=== PATIENT | female | born 2000 | race Caucasian/White ===

== ENCOUNTER 2023-08-08 09:25 | Emergency (ER) | payer OTHER, SELFPAY ==
--- NOTE | ~2023-08-08 | CT_ITS ---
EXAMINATION: CT ABDOMEN AND PELVIS WITHOUT CONTRAST CLINICAL INFORMATION: Diffuse abdominal pain. COMPARISON: CT abdomen/pelvis dated 12/24/2022. TECHNIQUE: Multidetector volumetric imaging was performed from the superior aspect of the liver through the pubic symphysis. Sagittal and coronal reformatted images were obtained on the technologist's workstation. This CT examination was performed using dose optimization techniques as appropriate, variously including the following: *Automated exposure control *Adjustment of mA and/or kV according to patient size (this includes techniques or standardized protocols for targeted exams where dose is matched to indication/reason for exam; i.e. extremities or head) *Use of iterative reconstruction technique DLP: 1053 mGy-cm FINDINGS: LUNG BASES: The visualized lung bases are unremarkable. LIVER, GALLBLADDER, AND BILIARY TREE: The liver is normal in size and shape. Parenchymal hypoattenuation, consistent with steatosis. No focal hepatic lesion or biliary ductal dilatation is present. The gallbladder is unremarkable with no evidence of radiopaque gallstones, gallbladder wall thickening, or obvious pericholecystic inflammatory changes. PANCREAS: Unremarkable. SPLEEN: Unremarkable. ADRENAL GLANDS: Unremarkable. KIDNEYS AND URETERS: The kidneys are normal in size, shape, and attenuation. No hydronephrosis, hydroureter, or calculi seen. No perinephric stranding. BLADDER: Unremarkable. GASTROINTESTINAL TRACT: No small or large bowel obstruction. No bowel wall thickening or inflammatory change. Unremarkable appendix. PERITONEAL CAVITY: No intra-abdominal free air or free fluid. No intra-abdominal mass or organized fluid collection/abscess formation. ABDOMINAL WALL: No significant hernia is appreciated. LYMPH NODES: No significant lymphadenopathy, however, evaluation is limited without IV contrast. VASCULAR: Unremarkable. PELVIC VISCERA: The uterus and adnexa are unremarkable. OSSEOUS STRUCTURES: Unremarkable. CT/CT abdomen pelvis wo IV con IMPRESSION: 1. No small or large bowel obstruction. No bowel wall thickening or inflammatory change. Unremarkable appendix. 2. No hydronephrosis or nephrolithiasis. 3. Hepatic steatosis. No hepatic parenchymal lesion or biliary ductal dilatation. 4. No intra-abdominal mass, lymphadenopathy, or ascites. Fleischner guidelines were followed.
--- NOTE | ~2023-08-08 | CT_ITS ---
EXAMINATION: CT HEAD WITHOUT CONTRAST CLINICAL INFORMATION: found on porch. COMPARISON: CT head 12/24/2022 TECHNIQUE: Contiguous axial imaging was performed from the skull base to vertex without intravenous administration of contrast. This CT examination was performed using dose optimization techniques as appropriate, variously including the following: *Automated exposure control *Adjustment of mA and/or kV according to patient size (this includes techniques or standardized protocols for targeted exams where dose is matched to indication/reason for exam; i.e. extremities or head) *Use of iterative reconstruction technique DLP: 1053 mGy-cm FINDINGS: There is no evidence of acute intracranial hemorrhage or edematous territorial infarction. No abnormal mass effect or midline shift is seen. Sanchez to white matter differentiation is well preserved. No extra-axial fluid collections are identified. The ventricles are normal in size. No abnormal attenuation in the brain parenchyma. No acute calvarial fracture.. Paranasal sinuses and mastoid air cells are well-aerated. CT/CT head/brain wo IV con IMPRESSION: No CT evidence of acute intracranial hemorrhage or edematous territorial infarction.
[2023-08-08 09:37] VITALS: BP 118/66; BP 94/49; PULSE 86; RESP 16; TEMP 36; O2SAT 96; O2SAT 97; BMI 31.3
--- NOTE | 2023-08-08 09:55 | PC.NURSE ---
juice given per Jackie CRUZ for blood sugar of 55
[2023-08-08 10:13] LABS: MANUAL DIFF FLAG NO
[2023-08-08 10:16] LABS: Basophils Percent Auto 0.2 % (0-2); Eosinophils Percent Auto 0.1 % (0-4); Hematocrit 42.1 % (37.0-47.0); Hemoglobin 14.3 g/dl (12.0-16.0); Imm Gran Abs Auto 0.06 X10*3/uL (0.00-0.03); Imm Gran Pct Auto 0.5 % (0.0-0.4); Lymphocytes Absolute Auto 2.3 X10*3/uL (1.2-4.9); Lymphocytes Percent Auto 17.6 % (20-40); Mean Corpuscular Hemoglobin 30.2 pg (27.0-33.0); Mean Corpuscular Volume 88.8 fL (80.0-98.0); Mean Platelet Volume 9.2 fL (9.4-12.3); Monocytes Absolute Auto 0.4 X10*3/uL (0.1-1.2); Monocytes Percent Auto 2.9 % (2-11); Neutrophils Absolute Auto 10.4 x10*3/uL (2.0-8.3); Neutrophils Percent Auto 78.7 % (45-73); Platelet Count 311 X10*3/uL (160-400); Red Blood Count 4.74 X10*6/uL (4.20-5.50); Red Cell Distribution Width 12.8 % (11.0-16.0); White Blood Count 13.2 X10*3/uL (4.8-10.8)
--- NOTE | 2023-08-08 10:26 | ED.AMS ---
HPI - Altered Mental Status General Chief Complaint: Altered Mental Status Stated Complaint: FOUND OUTSIDE,?ETOH/[place] PER EMS Time Seen by Provider: 08/08/23 09:45 Source: patient, EMS, RN notes reviewed and old records reviewed Mode of arrival: EMS History of Present Illness HPI narrative: 23-year-old female with no known past medical hx BIBA s/p being found sleeping on a stranger's porch in [place] across from [facility]. POC 55. Patient states she was at [facility] last night and was told to go wait for a bus however does not remember anything else. Admits to drug and EtOH use. Denies known injury/trauma or fall. History limited due to patient's cooperation/acute mental status Related Data Allergies Allergy/AdvReac Type Severity Reaction Status Date / Time No Known Allergies Allergy Verified 08/08/23 09:50 Review of Systems Review of Systems: ROS limited due to patient's acute mental status/cooperation Yes all other systems are reviewed and are negative Constitutional: Constitutional: Reports as per HPI [facility] Past Medical History Attestation statement: The following information was validated with the patient. Source: old records reviewed Social History Social History Advance Directives: No Advance Directives Information Provided: No Physical Exam ED Vital Signs: Vital Signs - 24 hr 08/08/23 09:37 08/08/23 11:42 08/08/23 14:41 Temperature 96.8 F Pulse Rate 57 98 Respiratory Rate 16 16 16 Blood Pressure 94/49 L 97/59 L 112/68 Pulse Oximetry 96 99 98 Oxygen Delivery Method Room Air Room Air Room Air BMI result Body Mass Index 31.3 Const General: no acute distress Orientation/consciousness: oriented to person and oriented to place HENDE Head: Yes normal to inspection and Yes atraumatic Ears: hearing grossly normal bilaterally General nose exam: Normal external nose present Face and sinus: Yes normal facial exam Eyes General: appearance normal, both eyes and all related structures Pupils: Equal, round and reactive pupils present EOM: EOMs intact bilaterally Neck Neck: Yes normal visual inspection and Yes no meningeal signs Resp Effort & Inspection: normal respiratory effort and no respiratory distress Auscultation: clear to auscultation bilaterally Cardio Rate: regular rate Heart sounds: S1 normal heart sound present and S2 normal heart sound present GI Inspection: Yes normal to inspection Palpation (GI): Soft to palpation, Tenderness to palpation present (GI) (Diffusely) with no rebound tenderness, no guarding and not rigid Skin Other: + healing ecchymosis noted to left upper thigh Rashes: no rashes Neuro General: oriented to person, oriented to place, tone normal, moves all extremities, no meningeal signs and no focal motor deficits Cranial nerves: Yes CN's II-XII intact bilaterally and Yes Equal, round and reactive pupils present Extrem General: Yes normal to inspection Course Course Course Narrative: -mild leukocytosis of 13.2. Glucose 55 > patient tolerating p.o. apple juice, improved to 92 -labs otherwise reassuring. Ethanol 128. COVID influenza negative -UA not infected, 80 ketones, negative CT head/brain wo IV con IMPRESSION: No CT evidence of acute intracranial hemorrhage or edematous territorial infarction. CT abdomen pelvis wo IV con IMPRESSION: 1. No small or large bowel obstruction. No bowel wall thickening or inflammatory change. Unremarkable appendix. 2. No hydronephrosis or nephrolithiasis. 3. Hepatic steatosis. No hepatic parenchymal lesion or biliary ductal dilatation. 4. No intra-abdominal mass, lymphadenopathy, or ascites. Fleischner guidelines were followed. > 1339--patient more awake and alert, tolerating p.o. -tox screen positive for cocaine and THC 1518--patient has been refusing juice/sandwiches, will only eat Jell-O. Easily arousable/awake and alert. Tolerating p.o., will continue to monitor -there is no recovery assistant on at this time. Repeat POC 116. Patient ambulating in the ED with steady gait, safe for discharge home at this time Results discussed with patient including worrisome signs and symptoms and strict return precautions, and when to return to the emergency department. They verbalized understanding and feel safe for discharge at this time. Medications Administered Discontinued Medications Generic Name Dose Route Start Last Admin Trade Name Freq PRN Reason Stop Dose Admin Lidocaine HCl 5 ml 08/08/23 15:11 08/08/23 15:44 Lidocaine Hcl Viscous 2 % 15 Ml Solution MUCOUS MEM 08/08/23 15:12 5 ml ONCE ONE Administration Medical Decision Making Medical Decision Making MDM Narrative: 23-year-old female with no known past medical hx BIBA s/p being found sleeping on a stranger's porch in [place] across from [facility]. On exam BP soft, A&Ox2, not answering all questions, appears under the influence. No evidence of trauma. SALDIVAR. Abdomen soft diffusely tender. Concern for substance abuse vs infectious/metabolic etiology. Rule out ICH and intra-abdominal pathology/injury. Patient hypoglycemic giving p.o. juice. Plan: Labs, UA, head/C-spine CT, tox screen, observe and re-evaluate Please refer to course for remaining clinical decision making, interpretation of labs/imaging results, and discussions with consultants and/or family members. Differential Diagnosis Differential Diagnoses: The differential diagnosis associated with the presentation includes As above Admission/Observation Consideration of admission/observation: Escalation of care including admission/observation considered Consult Healthcare Provider Management of the patient was discussed with: Behavioral [facility] Provider Lab Data MDM Lab Attestation statement: I reviewed the patient's lab results. 08/08/23 10:09 08/08/23 10:09 Labs: Lab Results 08/08/23 08/08/23 08/08/23 Range/Units 09:42 10:09 10:38 WBC 13.2 H (4.8-10.8) X10*3/uL RBC 4.74 (4.20-5.50) X10*6/uL Hgb 14.3 (12.0-16.0) g/dl Hct 42.1 (37.0-47.0) % MCV 88.8 (80.0-98.0) fL MCH 30.2 (27.0-33.0) pg MCHC 34.0 (31.0-35.0) g/dl RDW 12.8 (11.0-16.0) % Plt Count 311 (160-400) X10*3/uL MPV 9.2 L (9.4-12.3) fL Immature Gran % (Auto) 0.5 H (0.0-0.4) % Neut % (Auto) 78.7 H (45-73) % Lymph % (Auto) 17.6 L (20-40) % Hand % (Auto) 2.9 (2-11) % Eos % (Auto) 0.1 (0-4) % Baso % (Auto) 0.2 (0-2) % Lymph # (Auto) 2.3 (1.2-4.9) X10*3/uL Hand # (Auto) 0.4 (0.1-1.2) X10*3/uL Eos # (Auto) 0.0 (0.0-0.4) X10*3/uL Baso # (Auto) 0.0 (0.0-0.2) X10*3/uL Abs Immat Gran (auto) 0.06 H (0.00-0.03) X10*3/uL Absolute Neuts (auto) 10.4 H (2.0-8.3) x10*3/uL Absolute Nucleated RBC 0.000 (0.0-0.012) X10*3/uL Nucleated RBC % (auto) 0.0 (0.0-0.2) /100WBC Sodium 146 H (135-145) mmol/L Potassium 3.3 (3.3-5.1) mmol/L Chloride 107 (96-108) mmol/L Carbon Dioxide 23 (22-29) mmol/L Anion Gap 19 (12-20) BUN 10 (9-16) mg/dL Creatinine 0.82 (0.5-1.4) mg/dL Estim Creat Clear Calc 87.1 Estimated GFR > 60 POC Glucose 55 L* 63 92 (60-115) mg/dL Random Glucose 55 L* (60-115) mg/dL Calcium 9.0 (8.4-10.2) mg/dL Magnesium 2.1 (1.6-2.6) mg/dL Total Bilirubin 0.3 (0.0-1.0) mg/dL Direct Bilirubin 0.1 (0.0-0.5) mg/dL AST 37 H (5-31) U/L ALT 20 (0-31) U/L Alkaline Phosphatase 119 H (39-117) U/L Ammonia 36 (13-55) umol/L Total Protein 8.6 H (6.5-8.0) g/dL Albumin 4.7 (3.5-5.0) g/dL Lipase 12 (8-78) U/L Beta HCG, Quant < 2 mIU/mL Urine Color Urine Appearance Urine pH (5.0-9.0) Ur Specific Hudson (1.005-1.025) Urine Protein (Neg-Trace) mg/dL Urine Glucose (UA) (Negative) mg/dL Urine Ketones (Negative) mg/dL Urine Blood (Negative) Urine Nitrite (Negative) Ur Leukocyte Esterase (Negative) Urine Test (NEGATIVE) Urine Opiates Screen (Not Detect) Urine Fentanyl Screen (Not Detect) Ur Barbiturates Screen (Not Detect) Ur Phencyclidine Scrn (Not Detect) Ur Amphetamines Screen (Not Detect) U Benzodiazepines Scrn (Not Detect) Urine Cocaine Screen (Not Detect) U Marijuana (THC) Screen (Not Detect) Ethyl Alcohol 128 mg/dL COVID-19 (DARREL) Negative (Negative) COVID-19 Clin Com See Note Influenza Type A (TURNER) Negative (Negative) Influenza Type B (TURNER) Negative (Negative) Influenza A & B Note See Note 08/08/23 08/08/23 08/08/23 Range/Units 13:28 14:02 14:43 WBC (4.8-10.8) X10*3/uL RBC (4.20-5.50) X10*6/uL Hgb (12.0-16.0) g/dl Hct (37.0-47.0) % MCV (80.0-98.0) fL MCH (27.0-33.0) pg MCHC (31.0-35.0) g/dl RDW (11.0-16.0) % Plt Count (160-400) X10*3/uL MPV (9.4-12.3) fL Immature Gran % (Auto) (0.0-0.4) % Neut % (Auto) (45-73) % Lymph % (Auto) (20-40) % Hand % (Auto) (2-11) % Eos % (Auto) (0-4) % Baso % (Auto) (0-2) % Lymph # (Auto) (1.2-4.9) X10*3/uL Hand # (Auto) (0.1-1.2) X10*3/uL Eos # (Auto) (0.0-0.4) X10*3/uL Baso # (Auto) (0.0-0.2) X10*3/uL Abs Immat Gran (auto) (0.00-0.03) X10*3/uL Absolute Neuts (auto) (2.0-8.3) x10*3/uL Absolute Nucleated RBC (0.0-0.012) X10*3/uL Nucleated RBC % (auto) (0.0-0.2) /100WBC Sodium (135-145) mmol/L Potassium (3.3-5.1) mmol/L Chloride (96-108) mmol/L Carbon Dioxide (22-29) mmol/L Anion Gap (12-20) BUN (9-16) mg/dL Creatinine (0.5-1.4) mg/dL Estim Creat Clear Calc Estimated GFR POC Glucose 54 L* 80 (60-115) mg/dL Random Glucose (60-115) mg/dL Calcium (8.4-10.2) mg/dL Magnesium (1.6-2.6) mg/dL Total Bilirubin (0.0-1.0) mg/dL Direct Bilirubin (0.0-0.5) mg/dL AST (5-31) U/L ALT (0-31) U/L Alkaline Phosphatase (39-117) U/L Ammonia (13-55) umol/L Total Protein (6.5-8.0) g/dL Albumin (3.5-5.0) g/dL Lipase (8-78) U/L Beta HCG, Quant mIU/mL Urine Color Yellow Urine Appearance Clear Urine pH 5.0 (5.0-9.0) Ur Specific Hudson 1.025 (1.005-1.025) Urine Protein Trace (Neg-Trace) mg/dL Urine Glucose (UA) Negative (Negative) mg/dL Urine Ketones 80 (Negative) mg/dL Urine Blood Negative (Negative) Urine Nitrite Negative (Negative) Ur Leukocyte Esterase Negative (Negative) Urine Test NEGATIVE (NEGATIVE) Urine Opiates Screen Not Detected (Not Detect) Urine Fentanyl Screen Not Detected (Not Detect) Ur Barbiturates Screen Not Detected (Not Detect) Ur Phencyclidine Scrn Not Detected (Not Detect) Ur Amphetamines Screen Not Detected (Not Detect) U Benzodiazepines Scrn Not Detected (Not Detect) Urine Cocaine Screen POSITIVE H (Not Detect) U Marijuana (THC) Screen POSITIVE H (Not Detect) Ethyl Alcohol mg/dL COVID-19 (DARREL) (Negative) COVID-19 Clin Com Influenza Type A (TURNER) (Negative) Influenza Type B (TURNER) (Negative) Influenza A & B Note 08/08/23 Range/Units 15:46 WBC (4.8-10.8) X10*3/uL RBC (4.20-5.50) X10*6/uL Hgb (12.0-16.0) g/dl Hct (37.0-47.0) % MCV (80.0-98.0) fL MCH (27.0-33.0) pg MCHC (31.0-35.0) g/dl RDW (11.0-16.0) % Plt Count (160-400) X10*3/uL MPV (9.4-12.3) fL Immature Gran % (Auto) (0.0-0.4) % Neut % (Auto) (45-73) % Lymph % (Auto) (20-40) % Hand % (Auto) (2-11) % Eos % (Auto) (0-4) % Baso % (Auto) (0-2) % Lymph # (Auto) (1.2-4.9) X10*3/uL Hand # (Auto) (0.1-1.2) X10*3/uL Eos # (Auto) (0.0-0.4) X10*3/uL Baso # (Auto) (0.0-0.2) X10*3/uL Abs Immat Gran (auto) (0.00-0.03) X10*3/uL Absolute Neuts (auto) (2.0-8.3) x10*3/uL Absolute Nucleated RBC (0.0-0.012) X10*3/uL Nucleated RBC % (auto) (0.0-0.2) /100WBC Sodium (135-145) mmol/L Potassium (3.3-5.1) mmol/L Chloride (96-108) mmol/L Carbon Dioxide (22-29) mmol/L Anion Gap (12-20) BUN (9-16) mg/dL Creatinine (0.5-1.4) mg/dL Estim Creat Clear Calc Estimated GFR POC Glucose 116 H (60-115) mg/dL Random Glucose (60-115) mg/dL Calcium (8.4-10.2) mg/dL Magnesium (1.6-2.6) mg/dL Total Bilirubin (0.0-1.0) mg/dL Direct Bilirubin (0.0-0.5) mg/dL AST (5-31) U/L ALT (0-31) U/L Alkaline Phosphatase (39-117) U/L Ammonia (13-55) umol/L Total Protein (6.5-8.0) g/dL Albumin (3.5-5.0) g/dL Lipase (8-78) U/L Beta HCG, Quant mIU/mL Urine Color Urine Appearance Urine pH (5.0-9.0) Ur Specific Hudson (1.005-1.025) Urine Protein (Neg-Trace) mg/dL Urine Glucose (UA) (Negative) mg/dL Urine Ketones (Negative) mg/dL Urine Blood (Negative) Urine Nitrite (Negative) Ur Leukocyte Esterase (Negative) Urine Test (NEGATIVE) Urine Opiates Screen (Not Detect) Urine Fentanyl Screen (Not Detect) Ur Barbiturates Screen (Not Detect) Ur Phencyclidine Scrn (Not Detect) Ur Amphetamines Screen (Not Detect) U Benzodiazepines Scrn (Not Detect) Urine Cocaine Screen (Not Detect) U Marijuana (THC) Screen (Not Detect) Ethyl Alcohol mg/dL COVID-19 (DARREL) (Negative) COVID-19 Clin Com Influenza Type A (TURNER) (Negative) Influenza Type B (TURNER) (Negative) Influenza A & B Note Radiology Impression Discussion of test interpretation with radiology: I have reviewed the radiologist's reading. Independent Historian Clinical information obtained from an independent historian. History obtained from or confirmed by: EMS External Record Review External record reviewed: Inpatient record, Office record, Outpatient record, Prior outpatient labs, Prior outpatient radiology, Primary care record and Outside ED record Tests considered The following testing was considered but not selected: As above Social Determinants Patient?s care significantly limited by Social Determinants of Health including: Low income, Alcoholism and drug addiction in family, Problems related to primary support group and Unemployment Discharge Plan Discharge Clinical Impression: Polysubstance abuse, Hypoglycemia Patient Disposition: Home, Self-Care Instructions: Non-diabetic Hypoglycemia (ED), Polysubstance Abuse (ED) Additional Instructions: Your blood sugar was low today, make sure you are eating a well-balanced diet in drinking enough fluid Please avoid alcohol and drug use, but herself in a dangerous position today, you could have Follow-up with her doctor If symptom persist or worsen return to the ED Referrals: [facility] [Provider Group] [facility] [Outside] Physician,None [Primary Care Provider] -
[2023-08-08 10:32] LABS: Ammonia 36 umol/L (13-55)
[2023-08-08 10:41] LABS: COVID-19 Test Negative (Negative); IDNOW Serial# 9DB6401D; IDNOW Serial# BCCEAD1C; Influenza A Negative (Negative); Influenza B2 Negative (Negative)
[2023-08-08 10:42] LABS: Glucose, Whole Blood 63 mg/dL (60-115)
[2023-08-08 10:42] LABS: Glucose, Whole Blood 55 mg/dL (60-115)
[2023-08-08 10:42] LABS: Glucose, Whole Blood 92 mg/dL (60-115)
[2023-08-08 10:55] LABS: Alanine Aminotransferase 20 U/L (0-31); Albumin Level 4.7 g/dL (3.5-5.0); Alkaline Phosphatase 119 U/L (39-117); Anion Gap 19 (12-20); Aspartate Amino Transferase 37 U/L (5-31); Bilirubin Direct 0.1 mg/dL (0.0-0.5); Bilirubin Total 0.3 mg/dL (0.0-1.0); Blood Urea Nitrogen 10 mg/dL (9-16); Carbon Dioxide 23 mmol/L (22-29); Chloride 107 mmol/L (96-108); Creatinine Clr Calc Pharmacy 87.1; Estimated Glomerular Filt Rate > 60; Ethanol 128 mg/dL; Glucose Random 55 mg/dL (60-115); HCG Quantitative < 2 mIU/mL; Lipase 12 U/L (8-78); Magnesium 2.1 mg/dL (1.6-2.6); Potassium 3.3 mmol/L (3.3-5.1); Sodium 146 mmol/L (135-145); Total Protein 8.6 g/dL (6.5-8.0)
[2023-08-08 11:42] VITALS: BP 97/59; PULSE 57; RESP 16; O2SAT 99
--- NOTE | 2023-08-08 11:43 | PC.NURSE ---
patient sleeping. skin pwd, resp even and non labored. vss.
[2023-08-08 13:36] LABS: Appearance Urine Clear; Color Urine Yellow; Glucose Urine UA Negative (Negative); Leukocyte Esterase Urine Negative (Negative); Nitrite Urine Negative (Negative); Specific Gravity - Urine 1.025 (1.005-1.025); UPreg QC Valid YES; Urine Blood Negative (Negative); Urine Ketones 80 mg/dL (Negative); Urine Protein Trace mg/dL (Neg-Trace)
[2023-08-08 13:37] LABS: Urine Pregnancy NEGATIVE (NEGATIVE)
[2023-08-08 13:45] LABS: Amphetamine Screen Urine Not Detected (Not Detect); Barbiturates, Urine Not Detected (Not Detect); Benzodiazepines Screen Urine Not Detected (Not Detect); Cannabinoid Screen Urine POSITIVE (Not Detect); Cocaine Screen Urine POSITIVE (Not Detect); Fentanyl, urine Not Detected (Not Detect); Opiate Screen Urine Not Detected (Not Detect); Phencyclidine Screen Urine Not Detected (Not Detect)
[2023-08-08 14:06] LABS: Glucose, Whole Blood 54 mg/dL (60-115)
--- NOTE | 2023-08-08 14:15 | PC.NURSE ---
patient awake and alert. skin pwd, resp even and non labored, speaking in full, clear sentences. patients blood sugar decreased down to 54, patient given juice and snacks. PA aware
[2023-08-08 14:41] VITALS: BP 112/68; PULSE 98; RESP 16; O2SAT 98
[2023-08-08 14:50] LABS: Glucose, Whole Blood 80 mg/dL (60-115)
--- NOTE | 2023-08-08 15:30 | MHC.EDTECH ---
Patient ambulated with a steady gate and no assist
[2023-08-08] MEDS: Lidocaine HCl Viscous 2 % 15 ML SOLUTION 5 ML MUCOUS MEM (15:44)
[2023-08-08 15:50] LABS: Glucose, Whole Blood 116 mg/dL (60-115)
== END 2023-08-08 17:05 | disposition home or self-care (01) ==
PROVIDERS: Physician Assistant; Emergency Provider Emergency Medicine
DX: E16.2 Hypoglycemia, unspecified (principal); F19.10 Other psychoactive substance abuse, uncomplicated; R10.9 Unspecified abdominal pain; Z11.52 Encounter for screening for COVID-19
CPT/HCPCS: 70450; 74176; 80048; 80076; 80307; 81003; 81025; 82140; 82947; 83690; 83735; 84702; 85025; 87502; 87635; 99284

== ENCOUNTER 2025-03-25 02:21 | Emergency (ER) | payer SELFPAY ==
--- NOTE | ~2025-03-25 | CT_ITS ---
CLINICAL HISTORY: head trauma, EtOH CT BRAIN WITHOUT CONTRAST COMPARISON: 08/08/2023. FINDINGS: Exam is markedly limited due to motion/streak artifact. The patient was scanned twice. There is no definite evidence of an acute infarct or intraparenchymal hemorrhage. There is no definite mass effect, midline shift, or gross extra-axial blood. The ventricles are normal in size without evidence of hydrocephalus. The bone windows are unremarkable. IMPRESSION: 1. Markedly limited exam. No gross acute abnormality. This document has been electronically signed by: Miquel Robbins M.D. on 03/25/2025 04:11:46
--- NOTE | ~2025-03-25 | CT_ITS ---
CLINICAL HISTORY: fall, EtOH CT CERVICAL SPINE WITHOUT CONTRAST COMPARISON: None provided. FINDINGS: Examination is significantly motion limited. No definite acute fracture or dislocation in the cervical spine. Straightening of the normal cervical lordosis is noted. No prevertebral soft tissue swelling. No pneumothorax in the lung apices. IMPRESSION: 1. Significantly motion limited exam. No definite acute fracture or dislocation. This document has been electronically signed by: Miquel Robbins M.D. on 03/25/2025 04:02:56
[2025-03-25 02:25] VITALS: BP 110/58; PULSE 88; RESP 16; TEMP 36.1; O2SAT 97; BMI 24.9
--- NOTE | 2025-03-25 02:56 | PC.NURSE ---
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 The pt has intermittent periods of wakefullness, can be heard intermittently yelling out responding to stimuli intended for her neighbor in the bed over. she offers no complaints at this time, is noted to be moving all extremities, Pupils PERRLA, althgouh she is not necessarily making sense when she speaks her speech is clear. The pt had an episode and period of tearfullness without any known/identifiable cause, RN was present to help regulate her mood and provide verbal reassurance and support. Pt calm at this time, pending CT result and metabolise to freedom
--- NOTE | 2025-03-25 06:00 | ED.FALL ---
HPI - Fall General Chief Complaint: Fall Stated Complaint: ETOH Time Seen by Provider: 03/25/25 02:28 Source: patient, EMS, RN notes reviewed and old records reviewed Mode of arrival: EMS Limitations: altered mental status (Intoxication) History of Present Illness ED Provider: Dr. Paula Dawson HPI Narrative: 25-year-old female with unknown past medical history presenting with alcohol intoxication and witnessed fall by bystanders. Patient freely admits to drinking multiple shots today. Was reportedly coming in from a bar in [place] severely intoxicated when she fell outside of the car and hit her head on the curb. No reported LOC. No bleeding. Denies illicit substance use aside from alcohol. Had been feeling well prior to going out tonight according to EMS. Patient is belligerent and intoxicated, unable to answer any questions Related Data Previous Rx's ?Medication ?Instructions ?Recorded ondansetron 4 mg disintegrating 4 mg PO Q8H PRN nausea and 03/25/25 tablet vomiting #10 tabs Allergies Allergy/AdvReac Type Severity Reaction Status Date / Time No Known Allergies Allergy Verified 03/25/25 02:27 Review of Systems Review of Systems: As per HPI, full review of systems performed and negative but for the above mentioned pertinent positives and negatives. [facility] Social History Social History Alcohol intake: current Alcohol intake frequency: 0-2 drinks per day Alcohol type: hard liquor Substance Use Type: Marijuana Advance Directives: No Advance Directives Information Provided: No Physical Exam Exam: Exam: GENERAL: Appears intoxicated, GCS 13, eyes open to voice, slurred speech, no acute distress. SKIN: Normal skin color for ethnicity, warm, dry, no rashes noted. HEENT: Normocephalic, atraumatic, no stridor, posterior oropharynx nonerythematous, dentition intact, EOMI, pupils are pinpoint bilaterally, reactive to light. NECK: Soft, supple, no step-offs, no deformities, no lymphadenopathy. CHEST: Heart regular tachycardia, no murmurs, symmetric chest rise and fall. PULMONARY: Clear to auscultation bilaterally, diminished at the bases, no labored breathing, no wheezes/rhales/rhonchi. ABDOMINAL: Soft, nondistended, positive bowel sounds in all quadrants. : Deferred. MUSCULOSKELETAL: Normal tone, full range of motion, no deformities, no peripheral edema. NEURO: GCS 13, eyes open to voice, slightly slurred speech, CN II through XII intact, equal strength and sensation bilateral upper and lower extremities, no focal neurologic deficits. PSYCHIATRIC: Flat affect, poor eye contact. Vital Signs: Vital Signs: Last Vital Signs Temp 98.2 F 03/25/25 07:20 Pulse 91 03/25/25 07:20 Resp 14 03/25/25 07:20 BP 121/69 03/25/25 07:20 Pulse Ox 99 03/25/25 07:20 O2 Del Method Room Air 03/25/25 07:20 BMI result Body Mass Index 24.9 Course Course Course Narrative: has sober ride home, steady gait stable for DC Yamilex John, DO 03/25/25 0806 Medical Decision Making Medical Decision Making [facility] Narrative: Patient presents today with chief complaint of head trauma in the setting of alcohol intoxication. Different diagnosis on this patient includes intracranial hemorrhage, skull fracture, neck injury including fracture or spinal cord pathology. Other diagnoses considered would include chest or abdominal trauma as well as long bone fractures. Based on my physical exam, the ordered imaging modalities are indicated. The patient specifically does not show any signs of central cord syndrome as evidenced by equal strength in the upper extremities with normal two-point discrimination. Sensation is not altered. GCS is appropriate. Patient is neurovascularly intact. There are no signs of vascular emergency. No signs of shock. No respiratory distress. Patient is significantly intoxicated. CT does not show evidence of acute intracranial or C-spine pathology. Plan for sober re-evaluation and final disposition. Signing out to oncoming provider. Differential Diagnosis Differential Diagnoses: The differential diagnosis associated with the presentation includes (As above) Admission/Observation Consideration of admission/observation: Escalation of care including admission/observation considered Radiology Impression Discussion of test interpretation with radiology: I have reviewed the radiologist's reading. Radiologist Impression: CT CERVICAL SPINE WITHOUT CONTRAST COMPARISON: None provided. FINDINGS: Examination is significantly motion limited. No definite acute fracture or dislocation in the cervical spine. Straightening of the normal cervical lordosis is noted. No prevertebral soft tissue swelling. No pneumothorax in the lung apices. IMPRESSION: 1. Significantly motion limited exam. No definite acute fracture or dislocation. This document has been electronically signed by: Miquel Robbins M.D. on 03/25/2025 04:02:56 CT BRAIN WITHOUT CONTRAST COMPARISON: 08/08/2023. FINDINGS: Exam is markedly limited due to motion/streak artifact. The patient was scanned twice. There is no definite evidence of an acute infarct or intraparenchymal hemorrhage. There is no definite mass effect, midline shift, or gross extra-axial blood. The ventricles are normal in size without evidence of hydrocephalus. The bone windows are unremarkable. IMPRESSION: 1. Markedly limited exam. No gross acute abnormality. This document has been electronically signed by: Miquel Robbins M.D. on 03/25/2025 04:11:46 Independent Historian Clinical information obtained from an independent historian. History obtained from or confirmed by: EMS Discharge Plan Discharge Clinical Impression: Acute alcohol intoxication, Closed head injury Patient Disposition: Home, Self-Care Instructions: Head Injury (ED), Alcohol Intoxication (ED) Additional Instructions: Drink plenty of fluids over the next several days. You hit your head pretty hard last night and may have symptoms of a concussion today. This includes: Brain fog, difficulty concentrating, nausea, headaches, among other things. If you develop new or worsening symptoms, you should return to the emergency department this includes: Worsening headaches, fevers greater than 100?, stiff neck, inability to tolerate food or drink, any new symptom that concerns you. Call 911 with any medical emergency. Try to abstain from alcohol over the next several days. Drinking further alcohol will only exacerbate your symptoms. Prescriptions: New ondansetron 4 mg tablet,disintegrating 4 mg PO Q8H PRN (Reason: nausea and vomiting) Qty: 10 0RF Print Language: Thai
--- NOTE | 2025-03-25 06:12 | PC.NURSE ---
The pt has continued to rest throughout the night without any issues observed or concerns reported. RN experienced difficult time trying to complete worklist/tasks throughout the night s/t patient's intoxication status. Pt allowed to rest, ?dc once more awake and sober. She has been provided with warm blankets, was previously comforted earlier in the night and has not since required any additional staff interventions/assistance.
[2025-03-25 07:20] VITALS: BP 121/69; PULSE 91; RESP 14; TEMP 36.8; O2SAT 99
--- NOTE | 2025-03-25 07:20 | PC.NURSE ---
assumed care of patient at 0700, patient currently sleeping, resp even and unlabored. no signs of distress. patient awakens to verbal stimuli
--- NOTE | 2025-03-25 08:11 | PC.NURSE ---
patient friend obey picked patient up. patient signed paperwork. ambulated off unit with steady gait
== END 2025-03-25 08:12 | disposition home or self-care (01) ==
PROVIDERS: Emergency Provider Emergency Medicine
DX: F10.129 Alcohol abuse with intoxication, unspecified (principal); S09.90XA Unspecified injury of head, initial encounter; W19.XXXA Unspecified fall, initial encounter; Y93.9 Activity, unspecified; Y92.9 Unspecified place or not applicable; Y99.9 Unspecified external cause status
CPT/HCPCS: 70450; 72125; 99282; 99284

== ENCOUNTER → 2025-03-25 02:28 | Outpatient (BNV) | payer SELFPAY | PROVIDERS: Emergency Provider Emergency Medicine; Visit Provider Radiology Diagnostic Radiology | DX: F10.129 Alcohol abuse with intoxication, unspecified (principal); S09.90XA Unspecified injury of head, initial encounter | CPT/HCPCS: 70450; 72125 ==